=== PATIENT | female | born 1980 | race Caucasian/White ===

== ENCOUNTER 2017-07-24 16:30 | Outpatient (RCR) | payer OTHER, SELFPAY ==
--- NOTE | 2017-06-27 17:36 | HP.PTEVAL ---
Patient's Visit Information HUBERT FISHER is a 36 year old F referred to Physical Therapy by Pasha Mccormick with a diagnosis of Lumbago. Date of Evaluation: 06/27/17 Physical Therapist: Eladio Arthur - Visit Plan Frequency: 2x /Week Duration: 4 Weeks Plan: Start with light prone activities progressing to increased lumbar ext as tolerated. May use modalities to reduce symptoms. Once symptoms have resolved add in core strengtheing to maintain reduction. - Subjective Subjective: Pt. is here today for her initial evaluation with diagnosis of lumbago. Pt. reports having pain for ~3 months. She reports no mechanism of injury, but a gradual onset of symptoms. She reports initially having pain in lumbar spine, she took some prednisone and had no more pain. She weaned off the prednisone and developed pain in her R gluteal region. She continues to have pain in that region currently. She did have an xray which reports lumbralization of S1. Increases pain: prolonged sitting, prolonged standing, lifting, bending fwrd and rolling over in bed. Decreases pain: changing positions, prednisone, and heat. Pt. does reports some radiating pain down her RLE at times, but not frequently to the level of her ankle. Pt. has trialed light extension exercises on her own without changes in symptoms. Pt. denies changes in B/B and has not had an MRI at this point in time. Pt. denies back pain currently, but reports having R hip pain only. 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 She is hopeful to reduce symptoms in order to get back to all work and recreational activities without issues. - Pain R buttock Pain Intensity (Out of 10): 7 Pain Intensity Range: 7, 10 - Objective POSTURE: Pt. has flexed posture in stance. Pt. is over wt. Pt. has normal SKYLAR in stance without lateral deviation or postural shift. Pt. has normal iliac crest heights bilaterally. PALPATION: Pt. has increased tenderness to palpation of R piriformis muscle belly, increased pain to palpation of L4-S1 spring testing. No pain to palpation of bilateral erector spinea. NEUROLOGICAL: Pt. has normal sensation to light and sharp touch throughout bilateral LEs. Pt. has 2+ patellar and achilles DTR bilaterally. Pt. is able to rise on heels and toes without LOB, no signs of distal LE weakness. ROM: LUMBAR SPINE- flexion min/mod loss increase NW, ext min/mod loss increase NW, SB R nil loss mild increase upon return, SB L nil loss mild increase NW upon return, rotation nil loss bilat mild increase NW upon return. HIPS: Pt. has tightness throughout, mild increase NW with hip flexion motions. Pt. has tight hip IR bilaterally, R worse than L. MMT: RLE- ankle 5/5 throughout; knee- ext 5/5, flexon 4+/5; hip- flexon 4/5 (increase NW), abd 4/5 increase NW, ext 4/5, increase NW. LLE- ankle 5/5 throughout; knee 5/5 throughout; hip- flexion 4+/5, abd 4/5, ext 4+/5. No pain with LLE MMT. GAIT: Pt. has wide SKYLAR with gait. Pt. has decreased R stance phase on RLE. Pt. has increased lateral hip translation bilatarally. Pt. reports no increase in symptoms, but maintain symptoms as previously. STAIRS: pt. has increased symptoms with ascending and descending, pt. uses BHR to complete. - Special Tests L/S Slump test left side: Negative L/S Slump test right side: Positive L/S Left Straight Leg Raise: Negative L/S Right Straight Leg Raise: Positive Lumbar Standing: Flexion - Mechanical Response: No effect Lumbar Standing: Flexion - Symptoms During Testing: Increases Lumbar Standing: Flexion - Symptoms After Testing: No worse Lumbar Standing: Extension - Mechanical Response: No effect Lumbar Standing: Extension - Symptoms During Testing: Increases Lumbar Standing: Extension - Symptoms After Testing: No worse Lumbar Standing: Right Side Glides - Mechanical Response: No effect Lumbar Standing: Right Side [place] - Symptoms During Testing: No effect Lumbar Standing: Right Side [place] - Symptoms After Testing: No effect Lumbar Standing: Left Side [place] - Mechanical Response: No effect Lumbar Standing: Left Side [place] - Symptoms During Testing: No effect Lumbar Standing: Left Side [place] - Symptoms After Testing: No effect Lumbar Lying: Flexion - Mechanical Response: No effect Lumbar Lying: Flexion - Symptoms During Testing: Increases Lumbar Lying: Flexion - Symptoms After Testing: No worse Lumbar Lying: Extension - Mechanical Response: No effect Lumbar Lying: Extension - Symptoms During Testing: Increases Lumbar Lying: Extension - Symptoms After Testing: No worse Lumbar Static: Slouched Sit - Mechanical Response: No effect Lumbar Static: Slouched Sit - Symptoms During Testing: Increases Lumbar Static: Slouched Sit - Symptoms After Testing: No worse Lumbar Static: Sitting Erect - Mechanical Response: No effect Lumbar Static: Sitting Erect - Symptoms During Testing: Increases Lumbar Static: Sitting Erect - Symptoms After Testing: No worse Lumbar Static:Lying Prone in Extension - Mechanical Response: No effect Lumbar Static: Lying Prone in Extension - Sx During Testing: Decreases Lumbar Static: Lying Prone in Extension - Sx After Testing: No better - Goals Goal 1:: Pt. to be I with HEP. Goal Time Frame: 4-6 Weeks Goal 2:: Pt. to have increasd lumbar ROM by 25% in all directions without increase in symptoms. Goal Time Frame: 4-6 Weeks Goal 3:: Pt. to sleep without increase in symptoms allowing for increased quality of life. Goal Time Frame: 4-6 Weeks Goal 4:: Pt. to have increased core strength by 1/2 grade reducing stress applied to lumbar spine with all work and recreational activities. Goal Time Frame: 4-6 Weeks Goal 5:: Pt. to sit and walk for unlimited time and distances with 0-1/10 pain. Goal Time Frame: 4-6 Weeks Goal 6:: Pt. to resume all work activities with 0-1/10 pain in lumbar spine and RLE. Goal Time Frame: 4-6 Weeks - Rehabilitation Potential Physical Therapy Diagnosis: Pt. has signs and symptoms consistent with low back pain with radiculapathy down her R LE, constantly at R gluteal region, but does have occassional increase in symptoms to level of distal LE. Pt. has increased symptoms with fwrd flexion motions, lifting, and prolonged sitting/standing. Pt. would benefit from PT to increase ext, decrease symptoms, and increase core strength. Rehabilitation Potential: Good - Anticipated Interventions Patient/Client Instruction: Educate patient on: Condition, Plan of Care, Risk Factors, Benefits of Fitness Program For the Purpose of:: To reduce risk of recurrence, To improve safety, To improve health and function, To foster healthy habits, To improve decision making, To facilitate caregiver knowledge, To improve self management, To prevent re-injury, To improve ability to perform tasks related to life management, To improve tolerance to ADL's Therapeutic Exercise to Include: Strength training, Power training, Postural training, Flexibilty training, Passive ROM, Active ROM, Dynamic Lumbar Stabilization, Christiano Exercises For the Purpose of:: To decrease pain, To decrease swelling/inflammation, To increase ROM, To improve nutrient delivery to tissue, To increase oxygenation perfusion, To improve muscle performance and motor function, To improve ability to perform ADL's, To improve ability of physical actions for home/community/work/leisure, To improve health of tissue, To decrease soft tissue restriction, To increase flexibility/ROM Manual Therapy Techniques to Include: Mobilization, Manipulation, Passive ROM, Functional dry needling, Soft tissue mobilization For the Purpose of:: To decrease pain, To increase ROM, To improve nutrient delivery to tissue, To increase oxygenation perfusion, To improve muscle performance and motor function IF ES: Yes Cryotherapy (ice pack, ice massage): Yes Thermo therapy (hot pack): Yes Ultrasound (thermal/non thermal): Yes For the Purpose of:: To decrease pain, To decrease swelling/inflammation, To increase ROM Thank you for the opportunity to evaluate your patient. For Medicare and Medicare HMO plans, please review the plan of care and approve it. It will need to be FAXED BACK to us at [phone] for Medicare purposes. Please let me know if there are questions or concerns regarding this plan of care. Physician Signature: Date:
--- NOTE | 2017-07-25 13:01 | HP.PTREVAL_ITS ---
Pasha Mccormick, It has been my pleasure to treat HUBERT FISHER over the last 7 visits for Lumbago. Please see the progress note below for an update on the physical therapy plan of care! Subjective: Pt. reports I am doing pretty well, I am about a 3/10 today. Pt. reports she has made good progress from the 04/24 that she started with. Pt. reports being HEP compliant. Pt. wishes to follow up with physician at this point in time. She did mention that she had no pain while she was taking cold medication. Objective/Function: Pt. tolerated all PT without adverse reaction. Pt. reports having 2/10 pain in same areas post PT. LUMBAR ROM: flexion min/nil loss, ext min loss, SB nil loss bilat, rotation min/nil loss. Pt. reports no increase in pain with ROM. MMT-Pt. has poor+ core strength. R hip- flexion 4+/5, abd 4/5, ext 4/5. L hip- flexion 4+/5, abd 4/5, ext 4+/5. Pt. reports being able to complete most activities, but does still have pain ~3-4/10 at times, but has improved from 04/24/. Gait: pt. has normal gait pattern, slight lateral hip sway, but minimal. Pt. feels like she has started to platuea a bit and would like to see physician if any other intervention would help further. Plan Plan: Pt. to follow up with physician then back with PT to determine best course of action. Will keep case open for 1 month. Goals Goal 1:: Pt. to be I with HEP. Goal Time Frame: 4-6 Weeks Goal Progress: Goal Met Goal 2:: Pt. to have increasd lumbar ROM by 25% in all directions without increase in symptoms. Goal Time Frame: 4-6 Weeks Goal Progress: Goal Met Goal 3:: Pt. to sleep without increase in symptoms allowing for increased quality of life. Goal Time Frame: 4-6 Weeks Goal Progress: Progressing Goal 4:: Pt. to have increased core strength by 1/2 grade reducing stress applied to lumbar spine with all work and recreational activities. Goal Time Frame: 4-6 Weeks Goal Progress: Progressing Goal 5:: Pt. to sit and walk for unlimited time and distances with 0-1/10 pain. Goal Time Frame: 4-6 Weeks Goal Progress: Progressing Goal 6:: Pt. to resume all work activities with 0-1/10 pain in lumbar spine and RLE. Goal Time Frame: 4-6 Weeks Goal Progress: Progressing Anticipated Interventions Patient/Client Instruction: Educate patient on: Condition, Plan of Care, Risk Factors, Benefits of Fitness Program For the Purpose of:: To reduce risk of recurrence, To improve safety, To improve health and function, To foster healthy habits, To improve decision making, To facilitate caregiver knowledge, To improve self management, To prevent re-injury, To improve ability to perform tasks related to life management, To improve tolerance to ADL's Therapeutic Exercise to Include: Strength training, Power training, Postural training, Flexibilty training, Passive ROM, Active ROM, Dynamic Lumbar Stabilization, Christiano Exercises For the Purpose of:: To decrease pain, To decrease swelling/inflammation, To increase ROM, To improve nutrient delivery to tissue, To increase oxygenation perfusion, To improve muscle performance and motor function, To improve ability to perform ADL's, To improve ability of physical actions for home/community/work /leisure, To improve health of tissue, To decrease soft tissue restriction, To increase flexibility/ROM Manual Therapy Techniques to Include: Mobilization, Manipulation, Passive ROM, Functional dry needling, Soft tissue mobilization For the Purpose of:: To decrease pain, To increase ROM, To improve nutrient delivery to tissue, To increase oxygenation perfusion, To improve muscle performance and motor function IF ES: Yes Cryotherapy (ice pack, ice massage): Yes Thermo therapy (hot pack): Yes Ultrasound (thermal/non thermal): Yes Pelvic traction supine: Yes - added 07/03 For the Purpose of:: To decrease pain, To decrease swelling/inflammation, To increase ROM Please do not hesitate to contact me at [phone] by phone or Fax: if you have questions or concerns regarding this new plan of care! Sincerely, Eladio Arthur
== END 2017-07-24 17:00 | disposition home or self-care (01) ==
LOC: PT 16:30
PROVIDERS: Family Provider Family Medicine; PCP Family Medicine; Visit Provider Family Medicine
DX: M54.5 Low back pain (principal)
CPT/HCPCS: 97012; 97014; 97110; 97162; G0283

== ENCOUNTER → 2019-09-29 | Outpatient (CLI) | payer OTHER, MEDICAID, SELFPAY ==
[2019-10-01 17:42] LABS: HPV Reflexed? NOT INDICATED
== END | disposition home or self-care (01) ==
PROVIDERS: PCP Family Medicine; Referring Provider Nurse Practitioner Adult Health; Visit Provider Nurse Practitioner Adult Health
DX: Z01.419 Encounter for gynecological examination (general) (routine) without abnormal findings (principal)
CPT/HCPCS: 88175; G0145

== ENCOUNTER → 2021-01-14 09:28 | Outpatient (CLI) | payer MEDICAID, SELFPAY ==
[2021-01-14 09:56] LABS: Hematocrit 40.2 % (37-47); Mean Corp Hgb Conc 32.3 g/dL (32-36); Mean Corpuscular Hgb 29.1 pg (27.0-32.0); Mean Corpuscular Volume 89.9 fL (81-99); Mean Platelet Vol. 10.3 fl (6.2-12.0); Platelet Count 303 K/mm3 (150-450); RBC Distribution Width CV 12.7 % (11.6-14.6); RBC Distribution Width SD 42.1 fl (35.1-43.9); Red Blood Count 4.47 M/mm3 (4.2-5.4)
[2021-01-14 10:35] LABS: ALB/GLOB Ratio 0.9 RATIO (0.9-2.4); AST(SGOT) 17 U/L (15-37); Alanine Aminotransfer ALT/SGPT 30 U/L (13-56); Albumin, Serum 3.4 g/dL (3.2-5.0); Alkaline Phosphatase 63 U/L (45-117); Anion Gap 6 (5-15); BUN 9 mg/dL (7-18); BUN/Creat Ratio 12.2 RATIO (10-20); Calcium,Total 8.8 mg/dL (8.5-10.1); Chloride 104 mmol/L (98-107); Creatinine, Serum 0.74 mg/dL (0.55-1.02); EST Glomerular Filtration Rate 92 mL/min (>60); Est Glom Filt Rate - Afr Amer 111 mL/min (>60); Globulin 3.7 g/dL (2.2-4.2); Glucose 85 mg/dL (74-106); Protein, Total 7.1 g/dL (6.4-8.2); Sodium Level 138 mmol/L (136-145)
== END ==
PROVIDERS: Family Medicine; PCP Family Medicine; Visit Provider Family Medicine
DX: R59.0 Localized enlarged lymph nodes (principal)
CPT/HCPCS: 36415; 80053; 85027

== ENCOUNTER → 2021-01-21 14:21 | Outpatient (CLI) | payer MEDICAID, SELFPAY ==
--- NOTE | 2021-01-21 14:27 | US_ITS ---
STUDY: SUPERFICIAL ULTRASOUND - CERVICAL REGION. REASON FOR EXAM: Female, 40 years old. CERVICAL LYMPHADENOPATHY . Patient had second Covid expiration within the last month. TECHNIQUE: A superficial ultrasound was performed with real-time and static berrios-scale imaging. COMPARISON: None. FINDINGS: Multiple bilateral cervical lymph nodes are seen. The largest on the right measures 1.5 cm x 1.2 cm x 0.5 cm. The largest on the left side of the neck measures 1.6 cm x 1.2 cm x 0.5 cm. Sonographic follow-up is recommended. US/Head/Neck Soft Tissue IMPRESSION: Bilateral enlarged lymph nodes. Sonographic follow-up is recommended. Electronically Signed: Kade Johnston MD at 15:34 EDT , Service support ,
== END ==
PROVIDERS: PCP Family Medicine; Referring Provider Family Medicine; Visit Provider Family Medicine
DX: R59.0 Localized enlarged lymph nodes (principal)
CPT/HCPCS: 76536

== ENCOUNTER → 2021-02-01 12:47 | Outpatient (CLI) | payer MEDICAID, SELFPAY ==
--- NOTE | 2021-01-31 16:00 | ASPS_PTH ---
PATIENT: HUBERT FISHER LOC: [facility] U#:[id number] AGE/SX: 44/F ROOM: RE02/01/[address]: Dr. Paul Romo MD : 1980 BED: DIS: SPEC #: [id number] RECD: 02/01/21 12:11 STATUS: VAL ALEXANDRO #: [id number] HEATHER: 01/31/21 16:[address]: Paul Romo DEPT: CYTOLOGY RECD BY: Violeta Wilkins ENTERED: 02/01/21 13:55 SP TYPE: ASPIRATION OTHR DR: Dr. Pasha Mccormick MD Tissues: Lymph node of neck, NOS Procedures: Special Stain Group II Cytology Other HEADER OPERATION: Ultrasound-guided fine needle aspiration left neck lymph node PRE-OP DIAGNOSIS: Enlarged lymph node left neck TISSUE SUBMITTED: FNA left neck lymph node x12 smears DIAGNOSIS CYTOLOGY Left neck lymph node, ultrasound-guided FNA (smears): Paucicellular specimen, negative for malignant cells. See comment. SJ:cammy 02/02/2021 COMMENT Significant number of lymphocytes are not seen. The specimen predominantly consists of scant fragment of fibrous tissue and skeletal muscle tissue. Clinical correlation and appropriate follow up are necessary. Incisional or excisional biopsy of the lymph node is suggested, if clinically indicated, for definite diagnosis. Case has been reviewed in consultation with Dr. Machuca who concurs with the above diagnosis. IDC:AM CYTOLOGY STUDY Slides are reviewed. CYTOLOGY GROSS Received are 12 smears labeled with the patient's name and designated per the requisition as left neck lymph node. Submitted for staining. / cammy 02/01/2021 TC: Cannot code CPT: 74326
== END ==
PROVIDERS: PCP Family Medicine; Referring Provider Surgery; Visit Provider Surgery
DX: R59.0 Localized enlarged lymph nodes (principal)
CPT/HCPCS: 88161; 88307; 88313

== ENCOUNTER → 2021-02-04 09:31 | Outpatient (CLI) | payer MEDICAID, SELFPAY ==
--- NOTE | 2021-02-04 09:45 | RAD_ITS ---
STUDY: X-RAY CHEST REASON FOR EXAM: Female, 40 years old. LYMPHADENOPATHY TECHNIQUE: PA and lateral views of the chest. COMPARISON: Comparison is made with prior study dated 08/05/2015. FINDINGS: The lungs are clear and expanded. There is no demonstrated pleural abnormality. Normal size heart. Normal mediastinum and claudine. Normal visualized pulmonary arteries. Normal visualized aortic arch and descending thoracic aorta. Normal visualized thoracic spine. Normal visualized ribs, clavicles, and shoulders. There is no demonstrated abnormality of the visualized soft tissue structures of the upper abdomen. RAD/Chest PA and Lateral IMPRESSION: Normal x-ray examination of the chest. Electronically Signed: Kade Johnston MD at 12:48 EDT , Service support ,
[2021-02-04 12:26] LABS: Erythrocyte Sedimentation Rate 8 mm/hr (0-30)
[2021-02-04 12:45] LABS: CRP 6.79 mg/L (0.0-3.0); Ferritin 91 ng/mL (8-252); Iron 70 ug/dL (50-170); Rheumatoid Factor < 10.0 IU/mL (<15); Thyroid Stim Hormone (TSH) 2.58 uIU/mL (0.358-3.74)
[2021-02-04 14:11] LABS: Vitamin B12 316 pg/mL (211-911); Vitamin D,25 Hydroxy 19.5 ng/mL
[2021-02-06 08:22] LABS: ANTINUCLEAR ANTIBODIES DIRECT Negative (Negative)
== END ==
PROVIDERS: PCP Family Medicine; Referring Provider Family Medicine; Visit Provider Family Medicine
DX: R53.83 Other fatigue (principal); R59.0 Localized enlarged lymph nodes
CPT/HCPCS: 36415; 71046; 82306; 82607; 82728; 83540; 84443; 85652; 86038; 86140; 86431

== ENCOUNTER → 2021-02-18 10:14 | Outpatient (CLI) | payer MEDICAID, SELFPAY ==
--- NOTE | 2021-02-18 10:17 | US_ITS ---
STUDY: Soft tissue neck ULTRASOUND REASON FOR EXAM: Female, 40 years old. R59.9 -- FNA OF ENLARGED LYMPHNODE TECHNIQUE: Ultrasound evaluation of the soft tissue neck was performed with real-time and static berrios-scale imaging. COMPARISON: None. FINDINGS: Multiple longitudinal and transverse ultrasound images of the left supraclavicular area demonstrate some normal-sized lymph nodes with the largest measuring 5 x 11 mm. US/Head/Neck Soft Tissue IMPRESSION: Normal ultrasound examination of the soft tissue neck. Electronically Signed: Hector Rodríguez MD at 11:44 EDT Tel , Service support ,
== END | disposition home or self-care (01) ==
PROVIDERS: PCP Family Medicine; Referring Provider Surgery; Visit Provider Surgery
DX: R59.9 Enlarged lymph nodes, unspecified (principal)
CPT/HCPCS: 76536

== ENCOUNTER 2021-10-05 10:45 | Outpatient (CLI) | payer MEDICAID, SELFPAY ==
--- NOTE | 2021-10-05 10:48 | US_ITS ---
STUDY: ULTRASOUND EXAMINATION OF THE SOFT TISSUES OF THE NECK 07/16/2006 HOURS ON 10/05/2021 REASON FOR EXAM: 40-year-old female with neck lymphadenopathy--six-month follow-up. TECHNIQUE: Ultrasound evaluation of the soft tissues of the lower neck (supraclavicular regions) was performed with real-time and static berrios-scale imaging. COMPARISON: 02/18/2021. FINDINGS: The right supraclavicular region, there is a lymph node measuring 1.7 cm x 1.2 cm x 0.4 cm. In the left supraclavicular region, there are 2 lymph nodes: one lymph node measures 10 mm x 6 mm x 4 mm and the other lymph node measures 11 mm x 7 mm x 4 mm. These lymph nodes have significantly decreased in size since the previous study of 02/18/2021. There is no evidence of infiltrative processes within these lymph nodes. On no other cystic or solid mass lesions in the neck region. There are no findings of abnormal fluid collections. US/Head/Neck Soft Tissue IMPRESSION: 1. Previously enlarged lymph nodes demonstrated in the study of 02/18/2021 has significantly decreased in size and are now within the normal range for size and configuration. There is no evidence of infiltrative processes within these lymph nodes. 2. Evidence of either cystic or solid mass lesions in the neck region. 3. No abnormal fluid collections in the neck region. 4. No percutaneous biopsies were performed at the time of this examination. Electronically Signed: Preston Hill MD at 17:25 EDT ,
== END 2021-10-05 23:59 | disposition home or self-care (01) ==
LOC: US 10:47
PROVIDERS: PCP Family Medicine; Referring Provider Surgery; Visit Provider Surgery
DX: R59.9 Enlarged lymph nodes, unspecified (principal)
CPT/HCPCS: 76536

== ENCOUNTER 2023-11-18 20:47 | Emergency (ER) | payer MEDICAID, SELFPAY ==
[2023-11-18 20:48] VITALS: BP 182/108; PULSE 102; RESP 16; TEMP 36.4; O2SAT 97; BMI 42.9
--- NOTE | 2023-11-18 21:03 | EX.ED.GENINJ ---
HPI <JUDITH Lara - Last Filed: 11/18/23 21:48> History of Present Illness Chief Complaint: Laceration Narrative Narrative: Patient presenting today with a laceration to her left thumb that she sustained this evening while trying to open a can, cutting her finger on the lid. Tetanus is not up-to-date. PFSH <JUDITH Lara - Last Filed: 11/18/23 21:48> PFSH Home Medications NK 11/18/23 [History Last Taken Unknown] Allergy/AdvReac Type Severity Reaction Status Date / Time No Known Allergies Allergy Verified 11/18/23 20:50 Social History Smoking Status: Former smoker ROS <JUDITH Lara Last Filed: 11/18/23 21:48> ROS ED Constitutional Constitutional ED: Denies chills or fever(s) Cardiovascular Cardiovascular: Denies chest pain Respiratory/Chest Respiratory/Chest: Denies cough or dyspnea Gastrointestinal Gastrointestinal: Denies abdominal pain, nausea or vomiting Musculoskeletal Musculoskeletal: Denies arthralgias or myalgias Integumentary Reports laceration Neurologic Neurologic: Denies paresthesias EXAM <JUDITH Lara Last Filed: 11/18/23 21:48> Physical Exam Const Vital Signs: 11/18/23 20:48 11/18/23 21:40 Temperature 97.5 F L 98.4 F Temperature Source Temporal Pulse Rate 102 H 89 Respiratory Rate 16 16 Blood Pressure 182/108 H 177/88 H Blood Pressure Mean 132 117 Pulse Ox 97 97 Oxygen Delivery Method Room Air Positive well nourished, well developed and no apparent distress General Appearance ED: well developed HEENT Reports normocephalic and head/scalp atraumatic Mouth ED: Yes moist mucous membranes normal Eyes PERRL and EOMs intact bilaterally Neck full ROM and supple Chest Wall inspection of chest normal Resp normal respiratory effort and clear to auscultation bilaterally Cardio regular rate and regular rhythm GI soft to palpation, non-tender, non-distended and no masses Back/Spine normal ROM and normal to inspection Extremity normal to inspection and full ROM Neuro oriented x3, CN's II-XII intact bilaterally, moves all extremities, no focal motor deficits and no sensory deficits noted Sensorium / Orientation: awake and alert Psych mental status grossly normal and thought process normal Skin no rashes or lesions noted and no wounds Skin Narrative: 1.5 cm full-thickness linear laceration to the palmar aspect of the base of the left thumb. Left radial pulse 2+, good capillary refill, sensation intact. Full flexion and extension at the left first MCP and IP joint. <Dr. Art Sewell DO - Last Filed: 11/19/23 00:36> Physical Exam Const Vital Signs: 11/18/23 20:48 11/18/23 21:40 Temperature 97.5 F L 98.4 F Temperature Source Temporal Pulse Rate 102 H 89 Respiratory Rate 16 16 Blood Pressure 182/108 H 177/88 H Blood Pressure Mean 132 117 Pulse Ox 97 97 Oxygen Delivery Method Room Air PROC <JUDITH Lara Last Filed: 11/18/23 21:48> Procedures Lacerations Laceration: Length: 1.5 cm Depth: Sub Q Shape: Linear Prep: Chlorhexadine Laceration repair: Irrigated, Lidocaine and Skin sutures Number of Sutures/Bianca: 3 Suture Information: Ethilon, Simple and 5-0 MDM <JUDITH Lara Last Filed: 11/18/23 21:48> [facility] MDM Narrative Medical decision making narrative: Patient presenting with a laceration to the base of her left thumb on the palmar aspect that she got this evening on a can lid. This will require suture repair. Tetanus will be updated. Wound was copiously irrigated and cleaned with chlorhexidine. Lidocaine was used to anesthetize the wound, sutures were placed, patient tolerated procedure well. She was bandaged with bacitracin ointment. Wound care instructions discussed. I encouraged that she have sutures removed in 7 days. She will be discharged home in stable condition. <Dr. Art Sewell, - Last Filed: 11/19/23 00:36> [facility] Treatment and Re-Evaluation Narrative: I have personally performed a face to face assessment of the patient and have reviewed the PHILLIP Note. I performed a substantive portion of the visit including all aspects of the following. My nieto findings include: History: Patient presents with a laceration to her left thumb that occurred today. Patient states she cut her thumb on the edge of a can lid. Patient states that when the injury initially happened, she could see something white in the laceration. Patient denies any paresthesias or weakness. Patient describes her pain as burning. Patient states nothing makes it better nothing makes it worse. Patient states the bleeding stopped after several minutes of pressure. Patient is unsure of her last tetanus. Exam: Vital signs are stable except for an elevated blood pressure of 182/108. Patient is in no acute distress. Skin is warm and dry. There is a 1.5 cm full-thickness linear laceration over the palmar aspect of the base of the left thumb. There are no foreign bodies noted. There is moderate gapping of the wound margins. There is minimal bleeding noted. Strength is 5/5 in flexion and extension of the MP and IP joints of the left thumb. Sensation was intact to light touch in all digits. Capillary refill was less than 2 seconds in all digits. Medical Decision Making: Patient was given a tetanus booster. Patient was advised of need for laceration repair. Patient is agreeable with this. The wound was cleaned and irrigated with copious amounts normal saline. The wound was closed by the PHILLIP under my supervision. Patient tolerated procedure well. Patient was instructed to keep the wound clean and dry. Patient was instructed to follow-up with her primary care physician in 7 days for suture removal. Patient understood and was agreeable with the plan. All questions were answered. Discharge Plan Triage Chief Complaint: Laceration ED Midlevel Provider: Chasity Lamb ED Provider: Art Sewell Dx/Rx/DC Orders Clinical Impression: Laceration of hand Instructions: ED Laceration Extremity Prescriptions: No Action NK Primary Care Provider: Pasha Mccormick Referrals: Pasha Mccormick MD [Primary Care Provider] - 7 Days for suture removal Activity Restrictions/Additional Instructions: Have sutures removed in 7 to 10 days. Return for any signs of infection. Disposition Disposition: Home, Self Care Discharge Date/Time: 11/18/23 21:40
[2023-11-18] MEDS: Lidocaine 1% (20 ml mdv) 20 ML Vial 10 ML INFILT (21:04)
[2023-11-18] MEDS: Diphth,Pertuss(Acell),Tet Vac 0.5 ML Vial IM (21:04)
[2023-11-18 21:40] VITALS: BP 177/88; PULSE 89; RESP 16; TEMP 36.9; O2SAT 97
== END 2023-11-18 21:40 | disposition home or self-care (01) ==
PROVIDERS: Emergency Provider Emergency Medicine; PCP Family Medicine; Visit Provider Emergency Medicine
DX: S61.012A Laceration without foreign body of left thumb without damage to nail, initial encounter (principal); Z87.891 Personal history of nicotine dependence; W26.8XXA Contact with other sharp object(s), not elsewhere classified, initial encounter; Z23 Encounter for immunization
CPT/HCPCS: 12001; 90471; 90715; 99282

== ENCOUNTER → 2024-03-13 | Outpatient (CLI) | payer MEDICAID, SELFPAY ==
--- NOTE | 2024-03-13 15:01 | VDLE_ITS ---
Reason For Study: BLE PAin RIGHT LEFT GSV is normal. GSV is normal. CFV is compressible, spontaneous, phasic, CFV is compressible, spontaneous, phasic, competent and demonstrates normal competent, and demonstrates normal augmentation. augmentation. FV is compressible, spontaneous, phasic, FV is compressible, spontaneous, phasic, competent and demonstrates normal competent and demonstrates normal augmentation. augmentation. POP V is compressible, spontaneous, phasic, POP V is compressible, spontaneous, phasic, competent and demonstrates normal competent and demonstrates normal augmentation. augmentation. T/P Trunk is compressible. T/P Trunk is compressible. PTV is compressible. PTV is compressible. RT PerV is compressible. LT PerV is compressible. Possible lymph nodes measuring approximately Possible lymph node measuring approximately 1.68cm x 1.15cm and 1.93cm x 1.36cm noted in 3.13cm x 1.21cm noted in Lt Groin. Rt Groin. VL/Venous Duplex US - Baltazar Extrem Interpretation Summary Deep veins of the bilateral lower extremities are patent and compressible segme ntally. There is no evidence of bilateral lower extremity deep vein thrombosis. The bilateral great saphenous veins appear patent and compressible segmentally. Prominent inguinal lymph nodes bilateral. Ordering Physician: Jose Maria Cook Referring Physician: Jose Maria Cook Performed By: Dilan Webb RVT
== END | disposition home or self-care (01) ==
LOC: CVS 14:46
PROVIDERS: PCP Family Medicine; Referring Provider Family Medicine; Visit Provider Family Medicine
DX: M79.661 Pain in right lower leg (principal)
CPT/HCPCS: 93970

== ENCOUNTER → 2025-06-25 | Outpatient (CLI) | payer BC, SELFPAY ==
--- NOTE | 2025-06-25 15:55 | BI_ITS ---
EXAM: SCRN MAMM (CAD)W/[place] BILAT DATE: 06/25/2025 CLINICAL HISTORY: F, Age 44 y/o , SCREENING TECHNIQUE: Procedure Code: [id number] Modality: MG Procedure: SCRN MAMM (CAD)W/[place] BILAT COMPARISON: Baseline examination, no priors. FINDINGS: TISSUE DENSITY: There are scattered areas of fibroglandular density. Bilateral Breast Mammographic Findings: No significant masses, calcifications or other abnormalities are identified. BI/SCRN MAMM (CAD)W/[place] BILAT IMPRESSION: There is no mammographic evidence of malignancy. OVERALL FINAL ASSESSMENT BI-RADS 1: NEGATIVE. RECOMMENDATION: Routine annual follow-up in 1 Year Additional Recommendation none A letter with findings and recommendations will be mailed to the patient. Reading Location: [id number]
--- OUTSIDE RECORDS SUMMARY | 2025-06-25 18:17 | XMS RPT_ITS | CCD ---
Author Organization [facility] Care Team Providers Care Energy Specialist Name Role Phone Miguel Mccormick Primary Care Unavailable Art Boykin Attending Unavailable Jose Maria Cook Referring Unavailable Miguel Mccormick Primary Care Unavailable Jose Maria Cook Referring Unavailable Jose Maria Cook Attending Unavailable Art Sewell Attending Unavailable Miguel Mccormick Primary Care Unavailable Problems Active Problems Problem Classification Problem Date Documented Da te Episodic/Chronic Other connective tissue disease (1 source) Pain in right lower leg; Translations: [Pain in right lower leg] Onset: 03-20-2024 Episodic Past or Other Problems Problem Classification Problem Date Documented Da te Episodic/Chronic Open wounds of extremities (2 sources) Laceration of hand; Translations: [Laceration without foreign body of unspecified hand, initial encounter] Onset: 11-23-2023 11-18-2023 Episodic Results Test Name Value Interpretation Reference Range Facil ity Venous Duplex US - Baltazar Extre [facility] 03-13-2024 Venous Duplex US - Baltazar [facility] [address] [place] [address] Venous Duplex US - Baltazar Extrem 03/13/24 1528 MR#: [id number] Acct: [id number] Name: INA ESTRADA Rep #: [id number] : 1980 43 From: Art Boykin MD Attending Dr: Dr. Jose Maria Cook MD Status: REG CLI Ordering Dr: Jose Maria Cook MD Date: 03/13/24 Location: CVS Sex: F C Admitted: Reason For Study: BLE PAin RIGHT LEFT GSV is normal. GSV is normal. CFV is compressible, spontaneous, phasic, CFV is compressible, spontaneous, phasic, competent and demonstrates normal competent, and demonstrates normal augmentation. augmentation. FV is compressible, spontaneous, phasic, FV is compressible, spontaneous, phasic, competent and demonstrates normal competent and demonstrates normal augmentation. augmentation. POP V is compressible, spontaneous, phasic, POP V is compressible, spontaneous, phasic, competent and demonstrates normal competent and demonstrates normal augmentation. augmentation. T/P Trunk is compressible. T/P Trunk is compressible. PTV is compressible. PTV is compressible. RT PerV is compressible. LT PerV is compressible. Possible lymph nodes measuring approximately Possible lymph node measuring approximately 1.68cm x 1.15cm and 1.93cm x 1.36cm noted in 3.13cm x 1.21cm noted in Lt Groin. Rt Groin. VL/Venous Duplex US - Baltazar Extrem Interpretation Summary Deep veins of the bilateral lower extremities are patent and compressible segmentally. There is no evidence of bilateral lower extremity deep vein thrombosis. The bilateral great saphenous veins appear patent and compressible segmentally. Prominent inguinal lymph nodes bilateral. Ordering Physician: Jose Maria Cook Referring Physician: Jose Maria Cook Performed By: Dilan Webb, T 03/13/241702 Date Art Boykin MD CC: Dr. Miguel Mccormick MD; Dr. 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 Miguel Mccormick MD Status:DEP ER Location: ED HPI History of Present Illness Chief Complaint: Laceration Narrative Narrative: Patient presenting today with a laceration to her left thumb that she sustained this evening while trying to open a can, cutting her finger on the lid. Tetanus is not up-to-date. PFSH PFSH Home Medications NK 11/18/23 [History Last Taken Unknown] Allergy/AdvReac Type Severity Reaction Status Date / Time No Known Allergies Allergy Verified 11/18/23 20:50 Social History Smoking Status: Former smoker ROS ROS ED Constitutional Constitutional ED: Denies chills or fever(s) Cardiovascular Cardiovascular: Denies chest pain Respiratory/Chest Respiratory/Chest: Denies cough or dyspnea Gastrointestinal Gastrointestinal: Denies abdominal pain, nausea or vomiting Musculoskeletal Musculoskeletal: Denies arthralgias or myalgias Integumentary Reports laceration Neurologic Neurologic: Denies paresthesias EXAM Physical Exam Const Vital Signs: 11/18/23 20:48 11/18/23 21:40 Temperature 97.5 F L 98.4 F Temperature Source Temporal Pulse Rate 102 H 89 Respiratory Rate 16 16 Blood Pressure 182/108 H 177/88 H Blood Pressure Mean 132 117 Pulse Ox 97 97 Oxygen Delivery Method Room Air Positive well nourished, well developed and no apparent distress General Appearance ED: well developed HEENT Reports normocephalic and head/scalp atraumatic Mouth ED: Yes moist mucous membranes normal Eyes PERRL and EOMs intact bilaterally Neck full ROM and supple Chest Wall inspection of chest normal Resp normal respiratory effort and clear to auscultation bilaterally Cardio regular rate and regular rhythm GI soft to palpation, non-tender, non-distended and no masses Back/Spine normal ROM and normal to inspection Extremity normal to inspection and full ROM Neuro oriented x3, CN's II-XII intact bilaterally, moves all extremities, no focal motor deficits and no sensory deficits noted Sensorium / Orientation: awake and alert Psych mental status grossly normal and thought process normal Skin no rashes or lesions noted and no wounds Skin Narrative: 1.5 cm full-thickness linear laceration to the palmar aspect of the base of the left thumb. Left radial pulse 2+, good capillary refill, sensation intact. Full flexion and extension at the left first MCP and IP joint. Physical Exam Const Vital Signs: 11/18/23 20:48 11/18/23 21:40 Temperature 97.5 F L 98.4 F Temperature Source Temporal Pulse Rate 102 H 89 Respiratory Rate 16 16 Blood Pressure 182/108 H 177/88 H Blood Pressure Mean 132 117 Pulse Ox 97 97 Oxygen Delivery Method Room Air PROC Procedures Lacerations Laceration: Length: 1.5 cm Depth: Sub Q Shape: Linear Prep: Chlorhexadine Laceration repair: Irrigated, Lidocaine and Skin sutures Number of Sutures/Atlantic: 3 Suture Information: Ethilon, Simple and 5-0 MDM MDM MDM Narrative Medical decision making narrative: Patient presenting with a laceration to the base of her left thumb on the palmar aspect that she got this evening on a can lid. This will require suture repair. Tetanus will be updated. Wound was copiously irrigated and cleaned with chlorhexidine. Lidocaine was used to anesthetize the wound, sutures were placed, patient tolerated procedure well. She was bandaged with bacitracin ointment. Wound care instructions discussed. I encouraged that she have sutures removed in 7 days. She will be discharged home in stable condition. MDM Treatment and Re-Evaluation Narrative: I have personally performed a face to face assessment of the patient and have reviewed the PHILLIP Note. I performed a substantive portion of the visit including all aspects of the following. My nieto findings include: History: Patient presents with a laceration to her left thumb that occurred today. Patient states she cut her thumb on the edge of a can lid. Patient states that when the injury initially happened, she could see something white in the laceration. Patient denies any paresthesias or weakness. Patient describes her pain as burning. Patient states nothing makes it better nothing makes it worse. Patient states the bleeding stopped after several minutes of pressure. Patient is unsure of her last tetanus. Exam: Vital signs are stable except for an elevated blood pressure of 182/108. Patient is in no acute distress. Skin is warm and dry. There i (more content not included)... Normal [facility] Candy 08-31-2021 [facility] Telephone (Backyard[facility]) INA ESTRADA ([id number]) 1980 F Date Time Provider Department 08/31/21 PUAL ROMO During your visit today, we recorded the following information about you: Aubrie Wallace RN 08/31/2021 11:30 AM Signed Ina was to follow up wit an ultrasound of her head/neck in August of 2021 and then make an appointment with Dr. Romo. Recall letter mailed to the patient 07/24/2021, but no appointments have been scheduled. Called patient and spoke with her. She will call [facility] and schedule her ultrasound and then call our office to schedule a follow up appointment with Dr. Romo. CASEY Nash RN 10/17/2021 1:39 PM Signed Spoke with Ina. She advised that her ultrasound was completed at [facility] on 10/05/2021 and according to her medical record, the lymph nodes were smaller, so she does not feel that she needs to follow up with Dr. Romo. I advised that I would print the ultrasound and have Dr. Romo review them, just to make sure there is nothing additional that he would like to pursue. I advised that I would only call her back, if Dr. Romo decides he wants to see her. She voiced understanding. Scan printed from [facility] and given to to review. Aubrie Wallace RN Allergies As of Date: 08/31/2021 (No Known Allergies) Date Reviewed: 02/10/2021 Reviewed by: Aubrie Wallace RN - Fully Assessed Reason for Visit: Established Patient Follow-Up [[id number]] Cmt: 6 month follow up, enlarged lymph nodes in neck Prescriptions as of 10/17/2021 - cholecalciferol, Vitamin D3, (VITAMIN D3) 1,250 mcg (50,000 unit) cap capsule Take 1 capsule by mouth one time a week. - cyanocobalamin 1,000 mcg/mL Inject 1,000 mcg intramuscularly once every month. - magnesium oxide 200 mg magnesium chew Take by mouth. - cyclobenzaprine hcl(FLEXERIL 10 MG TAB) Take one(1) tablet every eight(8) to twelve(12) hours as needed for pain or spasms. - HYDROCODONE-ACETAMINOP HEN 5 MG-500 MG TAB Take one(1) tablet every four(4) to six(6) hours as needed for pain. Problem List As Of Date 08/31/2021 Noted Resolved BRUISE ABDOMINAL WALL [R58] 06/27/2007 Encounter Status:Closed by AUBRIE WALLACE on 08/31/21 Normal [facility] 02-21-2021 [facility] Telephone (GENGENBANDS) INA ESTRADA ([id number]) 1980 F Date Time Provider Department 02/21/21 PAUL ROMO During your visit today, we recorded the following information about you: Ina Morris RN 02/21/2021 1:[address] Romo: Patient to follow up in 6 months with ultrasound of head/neck soft tissue at [facility] and then office follow up . Order faxed to [facility]. Patient aware. Recall letter generated. Ina Morris RN Allergies As of Date: 02/21/2021 (No Known Allergies) Date Reviewed: 02/10/2021 Reviewed by: Aubrie Wallace RN - Fully Assessed Reason for Visit: Orders [681] Prescriptions as of 02/21/2021 - cholecalciferol, Vitamin D3, (VITAMIN D3) 1,250 mcg (50,000 unit) cap capsule Take 1 capsule by mouth one time a week. - cyanocobalamin 1,000 mcg/mL Inject 1,000 mcg intramuscularly once every month. - magnesium oxide 200 mg magnesium chew Take by mouth. - cyclobenzaprine hcl(FLEXERIL 10 MG TAB) Take one(1) tablet every eight(8) to twelve(12) hours as needed for pain or spasms. - HYDROCODONE-ACETAMINOP HEN 5 MG-500 MG TAB Take one(1) tablet every four(4) to six(6) hours as needed for pain. Problem List As Of Date 02/21/2021 Noted Resolved BRUISE ABDOMINAL WALL [R58] 06/27/2007 Encounter Status:Closed by INA MORRIS RN on 02/21/21 [facility] 02-10-2021 CNOV Office Visit (GENSWS ) INA ESTRADA ([id number]) 1980 F Date Time Provider Department 02/10/21 3:30 PM PAUL ROMO During your visit today, we recorded the following information about you: Temperature Pulse Blood pressure Weight 97.9 degrees 84/minute 128/80 123.7 kg Paul Romo III, MD 02/15/2021 10:53 AM Signed Subjective: Patient status post an ultrasound-guided fine-needle aspiration of a an enlarged lymph node in the left neck. This unfortunately did not give enough specimen for us to identify a lymph node and was therefore not adequate for evaluation. The specimen had consistent fragments of fibrous tissue and skeletal muscle. Objective:Blood pressure 128/80, pulse 84, temperature 36.6 ?C (97.9 ?F), weight 123.7 kg (272 lb 9.6 oz), SpO2 95 %. Biopsy site is clean without signs of bruising. Assessment: Enlarged lymph nodes Plan: I think I do not have any choice here but to try to get this scheduled at the hospital so that I can have a pathologist in the room and do a fine-needle aspiration so that we can identify an lymphocytes. Referring Provider: MIGUEL MCCORMICK [[id number]] Allergies As of Date: 02/10/2021 (No Known Allergies) Date Reviewed: 02/10/2021 Reviewed by: Aubrie Wallace RN - Fully Assessed Reason for Visit: Follow Up [171] Cmt: review lymph node biopsy Primary Visit Diagnosis:Enlarged lymph nodes [R59.9] Prescriptions as of 02/15/2021 - cholecalciferol, Vitamin D3, (VITAMIN D3) 1,250 mcg (50,000 unit) cap capsule Take 1 capsule by mouth one time a week. - cyanocobalamin 1,000 mcg/mL Inject 1,000 mcg intramuscularly once every month. - magnesium oxide 200 mg magnesium chew Take by mouth. - cyclobenzaprine hcl(FLEXERIL 10 MG TAB) Take one(1) tablet every eight(8) to twelve(12) hours as needed for pain or spasms. - HYDROCODONE-ACETAMINOP HEN 5 MG-500 MG TAB Take one(1) tablet every four(4) to six(6) hours as needed for pain. Problem List As Of Date 02/10/2021 Noted Resolved BRUISE ABDOMINAL WALL [R58] 06/27/2007 Letter Text Encounter Status:Closed by PAUL ROMO on 02/15/21 [facility] 02-10-2021 [facility] Telephone (GENSWS) INA ESTRADA ([id number]) 1980 F Date Time Provider Department 02/10/21 PAUL ROMO [facility] During your visit today, we recorded the following information about you: Horace Conn 02/10/2021 4:38 PM Signed 02-18-2021 [facility] 11 Allergies As of Date: 02/10/2021 (No Known Allergies) Date Reviewed: 02/10/2021 Reviewed by: Aubrie Wallace RN - Fully Assessed Reason for Visit: 02-18-2021 [facility] [Other] Prescriptions as of 03/09/2021 - cholecalciferol, Vitamin D3, (VITAMIN D3) 1,250 mcg (50,000 unit) cap capsule Take 1 capsule by mouth one time a week. - cyanocobalamin 1,000 mcg/mL Inject 1,000 mcg intramuscularly once every month. - magnesium oxide 200 mg magnesium chew Take by mouth. - cyclobenzaprine hcl(FLEXERIL 10 MG TAB) Take one(1) tablet every eight(8) to twelve(12) hours as needed for pain or spasms. - HYDROCODONE-ACETAMINOP HEN 5 MG-500 MG TAB Take one(1) tablet every four(4) to six(6) hours as needed for pain. Problem List As Of Date 02/10/2021 Noted Resolved BRUISE ABDOMINAL WALL [R58] 06/27/2007 Encounter Status:Closed by HORACE CONN on 03/09/21 Normal [facility] MARCEOVeddie 01-31-2021 CNOV Office Visit (GENSWS ) INA ESTRADA ([id number]) 1980 F Date Time Provider Department 01/31/21 4:00 PM PAUL ROMO During your visit today, we recorded the following information about you: Ina Morris RN 02/01/2021 12:54 PM Signed UNIVERSAL PROTOCOL / SAFETY CHECKLIST Procedure to be performed: ultrasound guided fine needle aspiration of enlarged lymph node left neck Sign in Communication: Completed Time Out: Team Confirms the Correct Patient, Correct Procedure, Correct Site and Site Marking, Correct Position (if applicable), Prep and Dry Time (if applicable). Time: 1556 Affirmation of Time Out: YES Sign Out Discussion: Completed Ina Morris RN 01/31/2021 4:05 PM Addendum The following instructions are important for you related to your office visit today with the [facility] General Surgeons. Instructions After lymph node FINE NEEDLE ASPIRATION Please do not take aspirin or other blood thinners for the next few days. If you have bleeding from the needle site, hold pressure with a clean gauze. If the bleeding continues, contact our office immediately. I recommend taking Advil or Tylenol for the discomfort. An ice pack may improve your discomfort to the area. Contact our office immediately if you have any questions or concerns @ [phone]. We will call you with the results If you note any additional difficulties, questions, or concerns, you should contact our office immediately @ [phone] and ask to be transferred to the General Surgery department. Paul Romo III, MD 02/01/2021 12:54 PM Signed Preoperative diagnosis: Enlarged lymph node to the left cervical neck area Postoperative diagnosis: The same Procedure: Ultrasound-guided fine-needle aspiration of enlarged lymph node to left neck Surgeon: Demetrius Procedure: Ultrasound of the left cervical neck area revealed the nodule in question. Prepped the skin with alcohol. Injected 1% lidocaine plain. Under ultrasound guidance took 3 passes with a 22-gauge needle. Placed these on glass slides. Sterile dressings were applied. Patient tolerated the procedure well. Referring Provider: SELF [[id number]] Allergies As of Date: 01/31/2021 (No Known Allergies) Date Reviewed: 01/31/2021 Reviewed by: Ina Morris RN - Fully Assessed Reason for Visit: Procedure [88] Primary Visit Diagnosis:Enlarged lymph nodes [R59.9] Order(s):US LYMPH NODE BIOPSY CERVICAL LEFT (POC) SURG USE ONLY [[id number]] Order #: [id number]. #:[id number]: 1 Prescriptions as of 02/01/2021 - magnesium oxide 200 mg magnesium chew Take by mouth. - cyclobenzaprine hcl(FLEXERIL 10 MG TAB) Take one(1) tablet every eight(8) to twelve(12) hours as needed for pain or spasms. - HYDROCODONE-ACETAMINOP HEN 5 MG-500 MG TAB Take one(1) tablet every four(4) to six(6) hours as needed for pain. Problem List As Of Date 01/31/2021 Noted Resolved BRUISE ABDOMINAL WALL [R58] 06/27/2007 Other instructions from your clinician: The following instructions are important for you related to your office visit today with the [facility] General Surgeons. Instructions After lymph node FINE NEEDLE ASPIRATION Please do not take aspirin or other blood thinners for the next few days. If you have bleeding from the needle site, hold pressure with a clean gauze. If the bleeding continues, contact our office immediately. I recommend taking Advil or Tylenol for the discomfort. An ice pack may improve your discomfort to the area. Contact our office immediately if you have any questions or concerns @ [phone]. We will call you with the results If you note any additional difficulties, questions, or concerns, you should contact our office immediately @ [phone] and ask to be transferred to the General Surgery department. Encounter Status:Closed by PAUL ROMO on 02/01/21 [facility] 01-25-2021 CNOV Office Visit (GENSWS ) INA ESTRADA ([id number]) 1980 F Date Time Provider Department 01/25/21 4:10 PM PAUL ROMO During your visit today, we recorded the following information about you: Temperature Pulse Weight Height 97.2 degrees 82/minute 123.9 kg 1.626 m Warren Haji CHELLY 02/08/2021 8:27 AM Signed REVIEW OF SYSTEMS: General: The patient NOTES fatigue, denies weight loss, NOTES weight gain, denies feeling hot, and denies feelings of cold. Eyes: The patient denies glaucoma, denies eye injury/surgery, wears glasses or contacts. Ear/Nose/Throat: The patient denies allergies, denies hayfever, denies ear infections, and denies bloody noses. Cardiovascular: The patient denies chest pain, denies heart disease, denies high blood pressure,denies cardiac stent, denies prior heart attack, denies irregular heart beat, denies high cholesterol, denies poor circulation, denies heart failure, other cardiac issues, denies claudication, denies cold feet, denies peripheral arterial stent. Respiratory: The patient denies tuberculosis, denies pneumonia, denies frequent cough, denies pulmonary embolism, denies shortness of breath, and denies coughing up blood. Gastrointestinal: The patient denies difficulty swallowing, denies acid reflux, denies ulcers, denies vomiting, denies jaundice/hepatitis, denies gallbladder problems, denies black or tarry stools, denies hemorrhoids, denies bleeding from rectum, denies diverticulitis, denies constipation, denies diarrhea, denies loss of stool control, and denies hernias. Kidney/Bladder: The patient denies kidney stones, denies urine infections, and denies bloody urine. Skin: The patient denies a history of skin cancer, denies bleeding/changing moles, and denies a history of skin rash. Neurologic: The patient denies a history of epilepsy/convulsions, NOTES headaches, denies head/spinal injuries, and denies stroke/TIA. Psychiatric: The patient denies psychiatric medications, NOTES depression, and denies voices, denies substance abuse. Endocrine: The patient denies thyroid disorders, denies diabetes, and denies hormonal problems. Hematologic: The patient denies a history of bruising, denies bleeding, and denies anemia, denies blood clots. Infections: The patient denies a history of measles and mumps, denies rheumatic fever, and denies sexually transmitted diseases. Musculoskeletal: The patient NOTES back pain/injury, denies back problems, denies sciatica, denies knee/foot trouble, denies arthritis, or denies gout. When was patient's last Mammogram screening? 09/2019 Last Colonoscopy: N/A Warren Romo III, MD 02/08/2021 8:27 AM Signed HISTORY AND PHYSICAL Ina Estrada 1980 REFERRING PHYSICIAN: Emil Rapp, * CHIEF COMPLAINT: Consult (Consult Lymphadenopathy) HPI: The patient is a 40 year old female with a complaint of complaint of painfully enlarged lymph nodes. Patient had an ultrasound of her neck completed at [facility] on 01/21/2021 she had bilateral cervical lymph nodes on the right side the largest was 1.5 cm in size and on the left side the largest was 1.6 cm in size started having increasing discomfort around December 24 for about 1 week now the pain has subsided. She is not been having any fevers at home not having any night sweats. . The patient is being seen by me today at the request of Dr. Miguel Mccormick MD for my opinion and advice regarding Enlarged lymph nodes (primary encounter diagnosis). PAST MEDICAL HISTORY Diagnosis Date - NEGATIVE MEDICAL HISTORY PAST SURGICAL HISTORY Procedure Laterality Date - BACK SURGERY HX 2009 Lumbar - COLPOSCOPY 2007 - NONE Current Outpatient Medications Medication Sig - magnesium oxide 200 mg magnesium chew Take by mouth. (Patient not taking: Reported on 01/31/2021 ) - cyclobenzaprine hcl(FLEXERIL 10 MG TAB) Take one(1) tablet every eight(8) to twelve(12) hours as needed for pain or spasms. - HYDROCODONE-ACETAMINOP HEN 5 MG-500 MG TAB Take one(1) tablet every four(4) to six(6) hours as needed for pain. No current facility-administered medications for this visit. ALLERGIES: Patient has no known allergies. PERSONAL HISTORY: Social History Tobacco Use - Smoking status: Never Smoker - Smokeless tobacco: Never Used Substance Use Topics - Alcohol use: No - Drug use: No FAMILY HISTORY: FAMILY HISTORY Problem Relation Age of Onset - Diabetes Maternal Grandmother - Ischemic Heart Disease Maternal Grandmother - Hypertension Maternal Grandmother - Breast Cancer Maternal Grandmother - Diabetes Maternal Grandfather - Ischemic Heart Disease Maternal Grandfather - Hypertension Maternal Grandfather - Alzheimer's Disease Maternal Grandfather - Cancer Paternal Grandmother pancreatic - Cancer Paternal Grandfat (more content not included)... Normal [facility] Vital Signs Date Time Vital Sign Value Performing Clinician Adan benjamin 11-18-2023 21:40-0400 Body temperature 98.4 [degF] [facility] 11-18-2023 21:40-0400 Diastolic blood pressure 88 mm[Hg] [facility] 11-18-2023 21:40-0400 Heart rate 89 /min [facility] 11-18-2023 21:40-0400 Respiratory rate 16 /min [facility] 11-18-2023 21:40-0400 SaO2% (BldA) [Mass fraction] 97 % [facility] 11-18-2023 21:40-0400 Systolic blood pressure 177 mm[Hg] [facility] 11-18-2023 20:48-0400 Body height 162.56 cm [facility] 11-18-2023 20:48-0400 Body mass index (BMI) [Ratio] 42.9 kg/m2 [facility] [facility]18-[facility]23 20:48-0400 Body weight 113.39 kg [facility] Encounters Encounter Date Encounter Type Care Provider Facility Start: 03-13-2024 ambulatory [facility] Fac[facility] lity:[facility] Start: 03-13-2024 End: 03-13-2024 ambulatory [facility] Facility:[facility] Start: 11-18-2023 End: 11-18-2023 Emergency department patient visit [facility]-Emergency Department Work Phone: Start: 10-05-2021 End: 10-05-2021 Patient encounter procedure [facility]-Ultrasound, [facility] Procedures Date Procedure Procedure Detail Performing Clinician Start: 10-05-2021 Ultrasonography of t hyroid and parathyroid Plan of Treatment Date Care Activity Detail Author Start: 11-18-2023 [facility] Patient Education ED Laceration Extremity [facility] Work Phone: Patient referral [facility] Work Phone: Immunizations Immunization Date Immunization Notes Care Provider Fa cility 11-18-2023 tetanus toxoid, redu antony diphtheria toxoid, and acellular pertussis vaccine, adsorbed [facility] Payers Date Payer Category Payer Self-pay [id number] 2021 Unknown [id number] 2015 Unknown [id number] Unknown [employer] DO NOT USE [id number] 37 [id number] Unknown [id number] Unknown [id number] Social History Date Type Detail Facility [facility] Work Phone: Start: 1980 Sex Assigned At Female [facility] Start: 11-18-2023 [facility] Hospital Discharge instructions 11-18-2023 Note Date & Type Note Facility 11-18-2023 Hospital Discharg e instructions Additional Instructions Have sutures removed in 7 to 10 days. Return for any signs of infection. [facility] Work Phone: Progress note 02-15-2021 Note Date & Type Note Facility 02-15-2021 Note HNO ID: [id number] Author: Paul Romo MD Service: ? Author Type: Physician Type: Progress Notes Filed: 02/15/2021 10:53 AM Note Text: Subjective: Patient status post an ultrasound-guided fine-needle aspiration of a an enlarged lymph node in the left neck. This unfortunately did not give enough specimen for us to identify a lymph node and was therefore not adequate for evaluation. The specimen had consistent fragments of fibrous tissue and skeletal muscle. Objective:Blood pressure 128/80, pulse 84, temperature 36.6 ?C (97.9 ?F), weight 123.7 kg (272 lb 9.6 oz), SpO2 95 %. Biopsy site is clean without signs of bruising. Assessment: Enlarged lymph nodes Plan: I think I do not have any choice here but to try to get this scheduled at the hospital so that I can have a pathologist in the room and do a fine-needle aspiration so that we can identify an lymphocytes. [facility] Progress note 02-08-2021 Note Date & Type Note Facility 02-08-2021 Note HNO ID: [id number] Author: Paul Romo MD Service: ? Author Type: Physician Type: Progress Notes Filed: 02/08/2021 8:27 AM Note Text: HISTORY AND PHYSICAL Ina Estrada 1980 REFERRING PHYSICIAN: Schinner, Emil Edward, * CHIEF COMPLAINT: Consult (Consult Lymphadenopathy) HPI: The patient is a 40 year old female with a complaint of complaint of painfully enlarged lymph nodes. Patient had an ultrasound of her neck completed at [facility] on 01/21/2021 she had bilateral cervical lymph nodes on the right side the largest was 1.5 cm in size and on the left side the largest was 1.6 cm in size started having increasing discomfort around December 24 for about 1 week now the pain has subsided. She is not been having any fevers at home not having any night sweats. . The patient is being seen by me today at the request of Dr. Miguel Mccormick MD for my opinion and advice regarding Enlarged lymph nodes (primary encounter diagnosis). PAST MEDICAL HISTORY Diagnosis Date - NEGATIVE MEDICAL HISTORY PAST SURGICAL HISTORY Procedure Laterality Date - BACK SURGERY HX 2009 Lumbar - COLPOSCOPY 2007 - NONE Current Outpatient Medications Medication Sig - magnesium oxide 200 mg magnesium chew Take by mouth. (Patient not taking: Reported on 01/31/2021 ) - cyclobenzaprine hcl(FLEXERIL 10 MG TAB) Take one(1) tablet every eight(8) to twelve(12) hours as needed for pain or spasms. - HYDROCODONE-ACETAMINOPHEN 5 MG-500 MG TAB Take one(1) tablet every four(4) to six(6) hours as needed for pain. No current facility-administered medications for this visit. ALLERGIES: Patient has no known allergies. PERSONAL HISTORY: Social History Tobacco Use - Smoking status: Never Smoker - Smokeless tobacco: Never Used Substance Use Topics - Alcohol use: No - Drug use: No FAMILY HISTORY: FAMILY HISTORY Problem Relation Age of Onset - Diabetes Maternal Grandmother - Ischemic Heart Disease Maternal Grandmother - Hypertension Maternal Grandmother - Breast Cancer Maternal Grandmother - Diabetes Maternal Grandfather - Ischemic Heart Disease Maternal Grandfather - Hypertension Maternal Grandfather - Alzheimer's Disease Maternal Grandfather - Cancer Paternal Grandmother pancreatic - Cancer Paternal Grandfather - Breast Cancer Paternal Aunt REVIEW OF SYMPTOMS: REVIEW OF SYSTEMS: General: The patient NOTES fatigue, denies weight loss, NOTES weight gain, denies feeling hot, and denies feelings of cold. Eyes: The patient denies glaucoma, denies eye injury/surgery, wears glasses or contacts. Ear/Nose/Throat: The patient denies allergies, denies hayfever, denies ear infections, and denies bloody noses. Cardiovascular: The patient denies chest pain, denies heart disease, denies high blood pressure,denies cardiac stent, denies prior heart attack, denies irregular heart beat, denies high cholesterol, denies poor circulation, denies heart failure, other cardiac issues, denies claudication, denies cold feet, denies peripheral arterial stent. Respiratory: The patient denies tuberculosis, denies pneumonia, denies frequent cough, denies pulmonary embolism, denies shortness of breath, and denies coughing up blood. Gastrointestinal: The patient denies difficulty swallowing, denies acid reflux, denies ulcers, denies vomiting, denies jaundice/hepatitis, denies gallbladder problems, denies black or tarry stools, denies hemorrhoids, denies bleeding from rectum, denies diverticulitis, denies constipation, denies diarrhea, denies loss of stool control, and denies hernias. Kidney/Bladder: The patient denies kidney stones, denies urine infections, and denies bloody urine. Skin: The patient denies a history of skin cancer, denies bleeding/changing moles, and denies a history of skin rash. Neurologic: The patient denies a history of epilepsy/convulsions, NOTES headaches, denies head/spinal injuries, and denies stroke/TIA. Psychiatric: The patient denies psychiatric medications, NOTES depression, and denies voices, denies substance abuse. Endocrine: The patient denies thyroid disorders, denies diabetes, and denies hormonal problems. Hematologic: The patient denies a history of bruising, denies bleeding, and denies anemia, denies blood clots. Infections: The patient denies a history of measles and mumps, denies rheumatic fever, and denies sexually transmitted diseases. Musculoskeletal: The patient NOTES back pain/injury, denies back problems, denies sciatica, denies knee/foot trouble, denies arthritis, or denies gout. ? ? When was patient's last Mammogram screening? 09/2019 ? Last Colonoscopy: N/A PHYSICAL EXAMINATION: General: The patient is 40 year old female, well nourished, well hydrated in no acute distress. The patient is oriented to time, place, and person. VITALS: Pulse 82, temperature 36.2 ?C (97.2 ?F), height 162.6 cm (5' 4), weight 1 (more content not included)... [facility] Progress note 02-01-2021 Note Date & Type Note Facility 02-01-2021 Note HNO ID: [id number] Author: Paul Romo MD Service: ? Author Type: Physician Type: Progress Notes Filed: 02/01/2021 12:54 PM Note Text: Preoperative diagnosis: Enlarged lymph node to the left cervical neck area Postoperative diagnosis: The same Procedure: Ultrasound-guided fine-needle aspiration of enlarged lymph node to left neck Surgeon: Demetrius Procedure: Ultrasound of the left cervical neck area revealed the nodule in question. Prepped the skin with alcohol. Injected 1% lidocaine plain. Under ultrasound guidance took 3 passes with a 22-gauge needle. Placed these on glass slides. Sterile dressings were applied. Patient tolerated the procedure well. [facility] Progress note 01-31-2021 Note Date & Type Note Facility 01-31-2021 Note HNO ID: [id number] Author: Ina Morris RN Service: ? Author Type: ? Type: Progress Notes Filed: 02/01/2021 12:54 PM Note Text: UNIVERSAL PROTOCOL / SAFETY CHECKLIST Procedure to be performed: ultrasound guided fine needle aspiration of enlarged lymph node left neck Sign in Communication: Completed Time Out: Team Confirms the Correct Patient, Correct Procedure, Correct Site and Site Marking, Correct Position (if applicable), Prep and Dry Time (if applicable). Time: 1556 Affirmation of Time Out: YES Sign Out Discussion: Completed Ina Morris RN [facility] Progress note 01-25-2021 Note Date & Type Note Facility 01-25-2021 Note HNO ID: [id number] Author: Warren Haji LPN Service: ? Author Type: ? Type: Progress Notes Filed: 02/08/2021 8:27 AM Note Text: REVIEW OF SYSTEMS: General: The patient NOTES fatigue, denies weight loss, NOTES weight gain, denies feeling hot, and denies feelings of cold. Eyes: The patient denies glaucoma, denies eye injury/surgery, wears glasses or contacts. Ear/Nose/Throat: The patient denies allergies, denies hayfever, denies ear infections, and denies bloody noses. Cardiovascular: The patient denies chest pain, denies heart disease, denies high blood pressure,denies cardiac stent, denies prior heart attack, denies irregular heart beat, denies high cholesterol, denies poor circulation, denies heart failure, other cardiac issues, denies claudication, denies cold feet, denies peripheral arterial stent. Respiratory: The patient denies tuberculosis, denies pneumonia, denies frequent cough, denies pulmonary embolism, denies shortness of breath, and denies coughing up blood. Gastrointestinal: The patient denies difficulty swallowing, denies acid reflux, denies ulcers, denies vomiting, denies jaundice/hepatitis, denies gallbladder problems, denies black or tarry stools, denies hemorrhoids, denies bleeding from rectum, denies diverticulitis, denies constipation, denies diarrhea, denies loss of stool control, and denies hernias. Kidney/Bladder: The patient denies kidney stones, denies urine infections, and denies bloody urine. Skin: The patient denies a history of skin cancer, denies bleeding/changing moles, and denies a history of skin rash. Neurologic: The patient denies a history of epilepsy/convulsions, NOTES headaches, denies head/spinal injuries, and denies stroke/TIA. Psychiatric: The patient denies psychiatric medications, NOTES depression, and denies voices, denies substance abuse. Endocrine: The patient denies thyroid disorders, denies diabetes, and denies hormonal problems. Hematologic: The patient denies a history of bruising, denies bleeding, and denies anemia, denies blood clots. Infections: The patient denies a history of measles and mumps, denies rheumatic fever, and denies sexually transmitted diseases. Musculoskeletal: The patient NOTES back pain/injury, denies back problems, denies sciatica, denies knee/foot trouble, denies arthritis, or denies gout. When was patient's last Mammogram screening? 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 Miguel Mccormick MD Family Provider Active Dr. Miguel Mccormick MD Primary Care Provider Acti ve Team Status: Inactive Member Role Status Dates Dr. Miguel Mccormick MD Primary Care Provider Acti ve Dr. Art Sewell , Emergency Provider Active FOR RECORDS PERTAINING TO PATIENTS WHO ARE OR HAVE BEEN ENROLLED IN A CHEMICAL DEPENDENCY/SUBSTANCEABUSE PROGRAM, SOME INFORMATION MAY BE OMITTED. This clinical summary was aggregated from multiple sources. Caution should be exercised in using it in the provision of clinical care. This summary normalizes information from multiple sources, and as a consequence, information in this document may materially change the coding, format and clinical context of patient data. In addition, data may be omitted in some cases. CLINICAL DECISIONS SHOULD BE BASED ON THE PRIMARY CLINICAL RECORDS. [employer] provides no warranty or guarantee of the accuracy or completeness of information in this document.
== END | disposition home or self-care (01) ==
LOC: OPBI 15:53
PROVIDERS: PCP Family Medicine; Referring Provider Family Medicine; Visit Provider Family Medicine
DX: Z12.31 Encounter for screening mammogram for malignant neoplasm of breast (principal)
CPT/HCPCS: 77063; 77067